=== PATIENT | male | born 1955 | race Caucasian/White ===

== ENCOUNTER 2019-01-05 21:32 | Emergency (ER) | payer SELFPAY ==
[~2019-01-05] VITALS: Ht 165.1 cm; Wt 83.9 kg
[2019-01-05 21:43] VITALS: Ht 165.1 cm; Wt 83.9 kg
[2019-01-06 00:10] VITALS: BP 156/89
== END 2019-01-06 00:10 | disposition home or self-care (01) ==
LOC: ED 21:32
DX: S00.03XA Contusion of scalp, initial encounter (principal); I10 Essential (primary) hypertension; V69.3XXA Occupant (driver) (passenger) of heavy transport vehicle injured in unspecified nontraffic accident, initial encounter; Y93.I9 Activity, other involving external motion; Y92.413 State road as the place of occurrence of the external cause; Y99.8 Other external cause status
CPT/HCPCS: J1885